=== PATIENT | female | born 1965 | race Hispanic/Latino ===

== ENCOUNTER 2016-07-16 08:07 | Inpatient (IN) | payer OTHER ==
[2016-07-16] MEDS ORDERED: MAGNESIUM SULFATE 2GM/50ML 2 GM/50 ML BAG IV ONE (08:18)
[2016-07-16] MEDS ORDERED: PROVENTIL IH ONE (08:25)
[2016-07-16] MEDS ORDERED: ATROVENT IH ONE (08:25)
--- NOTE | 2016-07-16 08:33 | Emergency Department Report ---
HPI - General Chief Complaint: Dyspnea/Respdistress Time Seen by Provider: 07/16/16 08:18 - HPI HPI: Room 20 The patient is a 50-year-old female presenting with a chief complaint of shortness of breath. Patient was recently diagnosed with COPD and is not on home O2. The past 2 days patient says worsening shortness of breath. The patient admits to a cough that is nonproductive. EMS was called this morning and found the patient hypoxic (80s on room air). Patient was placed on CPAP with improvement of her O2 sat to 99%. Patient also mentions she's had a "spider bite" on the left upper extremity 2 days ago. Location: Lungs, see above Duration: For 2 days Quality: Shortness Of breath Severity: Severe Modifying factors: [see above] Context: [see above] Mode of transportation: EMS ED Past Medical Hx - Past Medical History Hx COPD: Yes - Surgical History Additional Surgical History: c sections. tonsils removed - Family History Family history: no significant - Social History Smoking Status: Former Smoker Substance Use Type: None - Medications Home Medications: Home Medications Medication Instructions Recorded Confirmed Last Taken Type No Known Home Medications [No 07/16/16 07/16/16 Unknown History Reported Home Medications] ED Review of Systems ROS: Stated complaint: DIFFICULTY BREATHING Other details as noted in HPI Comment: All other systems reviewed and negative Constitutional: diaphoresis, fever (subjective) Eyes: denies: eye pain, eye discharge, vision change ENT: denies: ear pain, throat pain Respiratory: cough, shortness of breath, wheezing Cardiovascular: denies: chest pain, palpitations Endocrine: no symptoms reported Gastrointestinal: denies: abdominal pain, nausea, diarrhea Genitourinary: denies: urgency, dysuria, discharge Musculoskeletal: denies: back pain, joint swelling, arthralgia Skin: denies: rash, lesions Neurological: denies: headache, weakness, paresthesias Psychiatric: denies: anxiety, depression Hematological/Lymphatic: denies: easy bleeding, easy bruising Physical Exam - Physical Exam Vital Signs: Vital Signs 07/16/16 07/16/16 08:11 08:22 Temperature 97.8 F Pulse Rate 108 H 105 H Respiratory 28 H 23 Rate Blood Pressure 128/80 128/80 O2 Sat by Pulse 84 99 Oximetry Physical Exam: GENERAL: The patient is well-developed well-nourished female sitting on stretcher receiving CPAP not appearing to be in acute distress. [] HEENT: Normocephalic. Atraumatic. Extraocular motions are intact. Patient has moist mucous membranes. NECK: Supple. Trachea midline CHEST/LUNGS: Diffuse wheezing HEART/CARDIOVASCULAR: Regular. There is tachycardia. There is no gallop rub or murmur. ABDOMEN: Abdomen is soft, nontender. Patient has normal bowel sounds. There is no abdominal distention. SKIN: There is no rash. There is no edema. There is no diaphoresis. NEURO: The patient is awake, alert, and oriented. The patient is cooperative. The patient has normal speech MUSCULOSKELETAL: There is no evidence of acute injury. ED Course Vital Signs 07/16/16 07/16/16 08:11 08:22 Temperature 97.8 F Pulse Rate 108 H 105 H Respiratory 28 H 23 Rate Blood Pressure 128/80 128/80 O2 Sat by Pulse 84 99 Oximetry - Reevaluation(s) Reevaluation #1: 07/16/16 09:00 20-gauge IV placed in the left external jugular vein by myself after skin prepped with alcohol. ED Medical Decision Making - Lab Data Result diagrams: 07/16/16 08:43 07/16/16 08:43 Laboratory Tests 07/16/16 07/16/16 07/16/16 08:43 08:43 08:43 WBC 10.5 RBC 4.88 Hgb 14.9 H Hct 45.1 H MCV 92 MCH 31 MCHC 33 RDW 13.8 Plt Count 329 Lymph % (Auto) 36.6 H Karnes % (Auto) 9.2 H Eos % (Auto) 12.2 H Baso % (Auto) 0.9 Lymph # 3.8 Karnes # 1.0 H Eos # 1.3 H Baso # 0.1 Seg Neutrophils % 41.1 Seg Neutrophils # 4.3 PT 12.8 INR 0.97 APTT 41.6 H POC ABG pH POC ABG pCO2 POC ABG pO2 POC ABG HCO3 POC ABG Total CO2 POC ABG O2 Sat POC ABG Base Excess FiO2 Sodium 141 Potassium 4.3 Chloride 99.4 Carbon Dioxide 25 Anion Gap 21 BUN 9 Creatinine 0.7 Estimated GFR > 60 BUN/Creatinine Ratio 12.85 Glucose 98 Calcium 9.6 Total Creatine Kinase 424 H CK-MB (CK-2) 12.1 H CK-MB (CK-2) Rel Index 2.8 Troponin T < 0.010 NT-Pro-B Natriuret Pep 194.9 07/16/16 08:53 WBC RBC Hgb Hct MCV MCH MCHC RDW Plt Count Lymph % (Auto) Karnes % (Auto) Eos % (Auto) Baso % (Auto) Lymph # Karnes # Eos # Baso # Seg Neutrophils % Seg Neutrophils # PT INR APTT POC ABG pH 7.338 L POC ABG pCO2 48.6 H POC ABG pO2 77 L POC ABG HCO3 26.1 POC ABG Total CO2 28 POC ABG O2 Sat 94 POC ABG Base Excess 0 FiO2 30 Sodium Potassium Chloride Carbon Dioxide Anion Gap BUN Creatinine Estimated GFR BUN/Creatinine Ratio Glucose Calcium Total Creatine Kinase CK-MB (CK-2) CK-MB (CK-2) Rel Index Troponin T NT-Pro-B Natriuret Pep - EKG Data -: EKG Interpreted by Me EKG shows normal: sinus rhythm Rate: normal - EKG Data When compared to previous EKG there are: previous EKG unavailable Interpretation: nonspecific ST-T wave marycruz (T-wave inversions in leads 1, aVL) - Radiology Data Radiology results: image reviewed (chest x-ray) interpreted by me: Chest x-ray-no definite focal infiltrates, no pneumothorax - Differential Diagnosis COPD exacerbation, pneumonia, ACS Critical care attestation.: If time is entered above; I have spent that time in minutes in the direct care of this critically ill patient, excluding procedure time. ED Disposition Clinical Impression: Shortness of breath, COPD exacerbation Disposition: OP ADMITTED IP TO THIS HOSP Is pt being admited?: Yes Does the pt Need Aspirin: Yes Condition: Fair Instructions: Chronic Obstructive Pulmonary Disease (ED) Time of Disposition: 09:29 (hospitalist paged)
--- NOTE | 2016-07-16 08:35 | Admit Criteria Form ---
Admission Criteria Documentation: RESPIRATORY FAILURE GRG Clinical Indications for Admission to Inpatient Care (Place 'X' for any and all applicable criteria): Hospital admission is needed for appropriate care of the patient because of acute respiratory failure or insufficiency as indicated by ANY ONE of the following(1)(2)(3)(4)(5)(6)(7)(8): [ X]I. Mechanical ventilation needed (acute invasive or noninvasive) [ ]II. Severe ventilation deficit as indicated by ANY ONE of the following (9) [ ]a) Respiratory acidosis (pH less than 7.32 and partial pressure of carbon dioxide greater than 40 mm Hg (5.3 kPa)) [ ]b) Partial pressure of carbon dioxide greater than 44 mm Hg (5.9 kPa ) (new) [ ]c) Airflow measurements less than 25% of predicted (eg, peak expiratory flow rate less than 100 L/minute) [ ]d) Forced vital capacity less than 15 mL/kg of ideal body weight, or 50% decrease in vital capacity from baseline [ ]III. Noncardiac pulmonary edema not resolving with rapid emergency treatment (8) [ ]IV. Severe respiratory distress as indicated by ANY ONE of the following: [ ]a) Severe tachypnea (respiratory rate greater than 30, greater than 45 for 6-month-old, greater than 60 for ) [ ]b) Severe hypoxemia (partial pressure of oxygen less than 50 mm Hg ( 6.7 kPa) on greater than 50% oxygen or partial pressure of oxygen to FIO2 ratio less than 200) [ ]c) Mental status deterioration from respiratory disease [ ]V. Airway obstruction or inadequate protection [A](10)(11) The original [employer] content created by [employer] has been revised. The portions of the content which have been revised are identified through the use of italic text or in bold, and [employer] has neither reviewed nor approved the modified material. All other unmodified content is copyright [employer]. Please see references footnoted in the original [employer] edition 2016 Admission Criteria Met: Yes
[2016-07-16 09:00] LABS: ISTAT Base Excess 0; ISTAT HCO3 26.1; ISTAT PCO2 48.6 (35-45); ISTAT PH 7.338 (7.35-7.45); ISTAT PO2 77 (80-105); ISTAT SO2 94; ISTAT TCO2 28
[2016-07-16 09:04] LABS: Basophils % (Auto) 0.9 % (0.0-1.8); Eosinophils % (Auto) 12.2 % (0.0-4.3); Hematocrit 45.1 % (30.3-42.9); Hemoglobin 14.9 gm/dl (10.1-14.3); Mean Corpuscular HGB Conc 33 % (30-34); Mean Corpuscular Hemoglobin 31 pg (28-32); Mean Corpuscular Volume 92 fl (79-97); Platelet Count 329 K/mm3 (140-440); Red Blood Count 4.88 M/mm3 (3.65-5.03); Red Cell Distribution Width 13.8 % (13.2-15.2); White Blood Count 10.5 K/mm3 (4.5-11.0)
--- NOTE | 2016-07-16 09:11 | XRay Report ---
Single view chest: History: Shortness of breath. Findings: Normal cardiomediastinal silhouette trachea is midline. No consolidation, pneumothorax or pleural effusion. Impression: No acute cardiopulmonary findings.
[2016-07-16 09:15] LABS: INR 0.97 (0.87-1.13)
[2016-07-16 09:16] LABS: Partial Thromboplastin Time 41.6 Sec. (24.2-36.6)
[2016-07-16 09:19] LABS: Creatine Kinase MB 12.1 ng/mL (0.0-4.0)
[2016-07-16 09:20] LABS: Anion Gap 21 mmol/L; BUN/Creatinine Ratio 12.85; Blood Urea Nitrogen 9 mg/dL (7-17); Calcium 9.6 mg/dL (8.4-10.2); Carbon Dioxide 25 mmol/L (22-30); Chloride 99.4 mmol/L (98-107); Creatine Kinase 424 units/L (30-135); Glucose 98 mg/dL (65-100); Potassium 4.3 mmol/L (3.6-5.0); Sodium 141 mmol/L (137-145)
--- NOTE | 2016-07-16 10:37 | History and Physical Report ---
History of Present Illness Date of examination: 07/16/16 Date of admission: 07/16/16 09:31 Chief complaint: Shortness of breath and abnormal Baljinder History of present illness: Patient is a 50-year-old lady was a history of COPD, started having progressive shortness of breath and difficulty in breathing 2 days ago. Used her nebulizer treatments multiple times at home. Didn't have any improvement. Was progressively getting lethargic. EMS was coordinated. Patient was brought to the emergency department. Pulses oxygen was found to be in the 70s. The patient was transferred distress. Post on BiPAP. ABG showed pulse ox of 77. Patient denies any chest pain. No fever. No orthopnea proximal nocturnal dyspnea. No nausea vomiting. Admission was therefore requested for further evaluation and management. Past History Past Medical History: COPD, other Past Surgical History: , tonsillectomy Social history: other (was walking up until a month smoking up until one month ago when she quit. He smoked about half a pack of per day for the past 10-12 years.) Family history: other (COPD) Medications and Allergies Allergies Allergy/AdvReac Type Severity Reaction Status Date / Time No Known Allergies Allergy Unverified 07/16/16 08:15 Home Medications Medication Instructions Recorded Confirmed Last Taken Type No Known Home Medications [No 07/16/16 07/16/16 Unknown History Reported Home Medications] Active Meds: Active Medications Albuterol/Ipratropium (Duoneb 0.5 Mg-3 Mg/3 Ml Soln) 1 ampul IH Q4HRT [facility] Arformoterol Tartrate (Brovana Nebu) 15 mcg IH Q12HRT [facility] Budesonide (Pulmicort) 0.25 mg IH Q12HRT [facility] Heparin Sodium (Porcine) (Heparin) 5,000 unit SUB-Q Q12HR [facility] Azithromycin 500 mg/ Sodium (Chloride) 250 mls @ 250 mls/hr IV Q24HR [facility] Methylprednisolone Sodium Succinate (Solu-Medrol) 40 mg IV Q8HR [facility] Review of systems Constitutional: Well Nouridhed and Well developed. Head: NC/ AT Eyes: Denies any visual impairments. No discharge from the eyes Nose: Denies any rhinorrhea or epistaxis Throats: Denies any post nasal drainage. Ears: Denies any hearing deficits Cardiovascular system: Denies any chest pain, shortness of breath, orthopnea, paroxysmal nocturnal dyspnea, or palpitation. Respiratory system: Has difficulty breathing, wheezing, no pleuritic chest pain, Gastrointestinal system: Denies any abdominal pain, nausea vomiting, hematemesis or melena. Neurological system: Denies any headache, slurred speech, facial droop, lateralizing weakness Genitalia system: Denies any dysuria, urinary frequency or urgency, urethral discharge Skin: No rashes, hyperpigmented spots. Hematological: Denies any cervical tenderness hemorrhages or petechia. Immunological: Denies any multiple septic spots, Lymphatic: Denies any generalized lymphadenopathy. Endocrine: Denies any polyuria, polydipsia, polyphagia. No heat or cold intolerance. Musculoskeletal system: No joint pain or swelling. Psych: No visual, tactile, auditory or hallucination Exam - Constitutional Vitals: Temp Pulse Resp BP Pulse Ox 97.8 F 92 H 18 109/64 98 07/16/16 08:11 07/16/16 10:13 07/16/16 10:13 07/16/16 10:13 07/16/16 10:13 General appearance: Present: mild distress, well-nourished - EENT Eyes: Present: PERRL - Neck Neck: Present: supple, normal ROM - Respiratory Respiratory effort: normal Respiratory: bilateral: diminished, wheezing - Cardiovascular Heart Sounds: Present: S1 & S2. Absent: rub, click - Extremities Extremities: pulses symmetrical, No edema Peripheral Pulses: within normal limits - Abdominal General gastrointestinal: Present: soft, non-tender, non-distended, normal bowel sounds Female genitourinary: Present: normal - Integumentary Integumentary: Present: clear, warm, dry - Musculoskeletal Musculoskeletal: gait normal, strength equal bilaterally - Psychiatric Psychiatric: appropriate mood/affect, intact judgment & insight - Neurologic Neurologic: CNII-XII intact, moves all extremities Results - Labs CBC & Chem 7: 07/16/16 08:43 07/16/16 08:43 Assessment and Plan Assessment and plan -Acute hypoxemic respiratory failure Continue with BiPAP. DuoNeb. Pulmonology consult. - COPD exacerbation Commence patient on DuoNeb. IV Solu-Medrol. IV gentamicin. Continue with BiPAP. -Tobacco use disorder. Tobacco cessation Was Done. -Cellulitis of the left elbow Augmentin 875 mg 1 by mouth twice a day, IV Azithromycin -DVT prophylaxis with heparin and GI with Pepcid
[2016-07-16] MEDS ORDERED: PROVENTIL IH PRN (11:03)
[2016-07-16] MEDS: PULMICORT IH SCH ×2 (11:49→19:55)
[2016-07-16] MEDS: BROVANA NEBU IH SCH ×2 (11:49→19:55)
[2016-07-16] MEDS: DUONEB 0.5 MG-3 MG/3 ML SOLN IH SCH ×4 (14:04→20:56)
[2016-07-16] MEDS: ZITHROMAX 500 MG in NACL 0.9% 250ML 250 ML IV SCH (15:10)
[2016-07-16 17:56] LABS: ISTAT Base Excess 1; ISTAT HCO3 26.5; ISTAT PCO2 47.2 (35-45); ISTAT PH 7.357 (7.35-7.45); ISTAT PO2 80 (80-105); ISTAT SO2 95; ISTAT TCO2 28
[2016-07-16] MEDS: HEPARIN SUB-Q SCH (21:45)
[2016-07-17] MEDS: DUONEB 0.5 MG-3 MG/3 ML SOLN IH SCH ×4 (02:01→19:05)
[2016-07-17] MEDS: BROVANA NEBU IH SCH ×2 (07:58→19:06)
[2016-07-17] MEDS: PULMICORT IH SCH ×3 (08:00→19:12)
[2016-07-17 08:53] LABS: ISTAT Base Excess TNR
[2016-07-17 08:54] LABS: ISTAT HCO3 TNR; ISTAT PCO2 TNR (35-45); ISTAT PH TNR (7.35-7.45); ISTAT PO2 TNR (80-105); ISTAT SO2 TNR; ISTAT TCO2 TNR
[2016-07-17] MEDS ORDERED: PEPCID IV SCH (10:00)
[2016-07-17] MEDS: HEPARIN SUB-Q SCH ×2 (10:49→21:39)
--- NOTE | 2016-07-17 12:07 | Consultation ---
History of Present Illness Consult date: 07/17/16 Reason for consult: dyspnea, cough, COPD History of present illness: Called to evaluate case of a 50-year-old female, chronic active smoker who presents with her second episode of shortness of breath in the past 4-5 weeks. The patient reports that she started with breathing problems about 2 days ago characterized by discussed with the breathing, dyspnea upon exertion, chest tightness. Some wheezing reported. She denies fevers chills or chest pain. She denies hemoptysis. She had a similar presentation of symptoms about 4-5 weeks ago and she was seen at the ER, been diagnosed at the time of COPD exacerbation. Reportedly on nebulizer therapy twice a day at home. She is a chronic smoker since age 19 smoking one half pack cigarettes per day. Denies alcohol drug abuse. No sick contacts, [place] or recent travel. She does report also smokers, secondhand smoke exposure. Currently feeling improved after breathing treatments overnight. Past History Past Medical History: COPD, other Past Surgical History: , tonsillectomy Social history: other (was walking up until a month smoking up until one month ago when she quit. He smoked about half a pack of per day for the past 10-12 years.) Family history: other (COPD) Medications and Allergies Allergies Allergy/AdvReac Type Severity Reaction Status Date / Time No Known Allergies Allergy Unverified 07/16/16 08:15 Home Medications Medication Instructions Recorded Confirmed Last Taken Type No Known Home Medications [No 07/16/16 07/16/16 Unknown History Reported Home Medications] Active Meds: Active Medications Albuterol (Proventil) 2.5 mg IH Q2HRT PRN PRN Reason: Shortness Of Breath Albuterol/Ipratropium (Duoneb 0.5 Mg-3 Mg/3 Ml Soln) 1 ampul IH Q6HRT [facility] Last Admin: 07/17/16 08:00 Dose: Not Given Arformoterol Tartrate (Brovana Nebu) 15 mcg IH Q12HRT [facility] Last Admin: 07/17/16 07:58 Dose: 15 mcg Budesonide (Pulmicort) 0.25 mg IH Q12HRT [facility] Last Admin: 07/17/16 08:00 Dose: 0.25 mg Famotidine (Pepcid) 20 mg IV QDAY [facility] Last Admin: 07/17/16 10:49 Dose: 20 mg Heparin Sodium (Porcine) (Heparin) 5,000 unit SUB-Q Q12HR [facility] Last Admin: 07/17/16 10:49 Dose: 5,000 unit Azithromycin 500 mg/ Sodium (Chloride) 250 mls @ 250 mls/hr IV Q24HR [facility] Last Admin: 07/16/16 15:10 Dose: 250 mls/hr Methylprednisolone Sodium Succinate (Solu-Medrol) 80 mg IV Q8HR [facility] Last Admin: 07/17/16 06:42 Dose: 80 mg Review of Systems Constitutional: fatigue, no weight loss, no fever, no chills, no sweats, no night sweats Ears, nose, mouth and throat: no nasal congestion, no nasal discharge, no sinus pressure Cardiovascular: orthopnea, shortness of breath, dyspnea on exertion, no chest pain, no edema, no syncope Respiratory: cough, shortness of breath, dyspnea on exertion, congestion, wheezing, sleep apnea (partner reports that the patient snores heavily at night with breathing difficulty) Musculoskeletal: no morning stiffness Integumentary: no rash Neurological: no head injury, no transient paralysis, no paralysis, no weakness , no parathesias, no numbness, no vertigo, no convulsions Hematologic/Lymphatic: no easy bruising, no easy bleeding, no lymphadenopathy Allergic/Immunologic: allergic rhinitis, wheezing Physical Examination Vital signs: Vital Signs Pulse Ox 96 07/16/16 08:06 General appearance: no acute distress, alert Eyes: non-icteric ENT: oropharynx moist Neck: supple, no lymphadenopathy, no JVD Ascultation: Bilateral: diminished breath sounds, rhonchi (sporadic no wheezes) Cardiovascular: regular rate and rhythm Gastrointestinal: normoactive bowel sounds, non-tender Integumentary: normal, other (multiple tattoos) Extremities: no cyanosis, no edema Musculoskeletal: no deformities, ROM normal normal mental status, non-focal exam, pupils equal and round, CN II-XII normal, motor strength normal and mood appropriate Results - Laboratory Findings CBC and BMP: 07/16/16 08:43 07/16/16 08:43 ABG POC ABG pH 7.357 (7.35-7.45) 07/16/16 17:45 POC ABG pCO2 47.2 (35-45) H 07/16/16 17:45 POC ABG pO2 80 (80-105) 07/16/16 17:45 POC ABG HCO3 26.5 07/16/16 17:45 POC ABG Total CO2 28 07/16/16 17:45 POC ABG O2 Sat 95 07/16/16 17:45 PT/INR, D-dimer PT 12.8 Sec. (12.2-14.9) 07/16/16 08:43 INR 0.97 (0.87-1.13) 07/16/16 08:43 Abnormal lab findings: Abnormal Labs 07/16/16 17:45 POC ABG pCO2 47.2 H - Diagnostic Findings Chest x-ray: report reviewed, image reviewed Assessment and Plan COPD exacerbation. Acute exacerbation chronic bronchitis Tobacco abuse Recommendations Continue albuterol or DuoNeb nebulizations one ampule unit dose every 4-6 hours. Oxygen as needed to maintain oximetry over 90% Solu-Medrol 40-60 mg IV every 8 hours. Complete 5 days of azithromycin or doxycycline Smoking cessation was discussed with the patient. Nicotine replacement patch can be used Will benefit from outpatient pulmonary function test for COPD treatment stratification level DVT prophylaxis
[2016-07-17] MEDS: ZITHROMAX 500 MG in NACL 0.9% 250ML 250 ML IV SCH (13:32)
--- NOTE | 2016-07-17 15:43 | Progress Note ---
Subjective Date of service: 07/17/16 Interval history: Assessment and plan COPD exacerbation Complains of productive cough with greenish white sputum Denies fever and chills However she is refusing anything IV And is refusing INT We will change the steroids and antibiotics to oral Will add Singulair Continue aggressive nebulizer treatments Hypoxia: Continue oxygen at 2 L via nasal cannula Acute on chronic bronchitis: Continue antibiotics and steroids Tobacco abuse: Tobacco cessation counseling Objective - Constitutional Vitals: Vital Signs - 12hr 07/17/16 07/17/16 07/17/16 04:51 08:00 08:15 Temperature 97.9 F 98.2 F Pulse Rate [ 86 88 Anterior Bilateral Throughout] Pulse Rate [ 77 77 Right Radial] Respiratory 18 18 Rate Respiratory 16 16 Rate [Anterior Bilateral Throughout] Blood Pressure 128/77 125/83 [Right Arm] O2 Sat by Pulse 97 97 Oximetry 07/17/16 07/17/16 07/17/16 08:19 13:51 14:06 Temperature Pulse Rate [ 90 96 H Anterior Bilateral Throughout] Pulse Rate [ Right Radial] Respiratory Rate Respiratory 16 16 Rate [Anterior Bilateral Throughout] Blood Pressure [Right Arm] O2 Sat by Pulse 94 Oximetry General appearance: Present: no acute distress - EENT Eyes: PERRL, EOM intact ENT: hearing intact, clear oral mucosa, no thrush - Neck Neck: supple, normal ROM - Respiratory Respiratory effort: normal Respiratory: bilateral: diminished, rhonchi (bilateral expiratory rhonchi) - Cardiovascular Rhythm: regular Heart Sounds: Present: S1 & S2 Extremities: No edema - Gastrointestinal General gastrointestinal: Present: soft, non-tender. Absent: hepatomegaly, splenomegaly Rectal Exam: deferred - Integumentary Integumentary: clear - Musculoskeletal Musculoskeletal: strength equal bilaterally - Neurologic Neurologic: no focal deficits - Labs CBC & Chem 7: 07/16/16 08:43 07/16/16 08:43 Labs: Abnormal lab results 07/16/16 Range/Units 17:45 POC ABG pCO2 47.2 H (35-45)
[2016-07-17] MEDS: DELTASONE PO SCH (16:07)
[2016-07-17] MEDS: LEVAQUIN PO SCH (16:08)
[2016-07-17] MEDS ORDERED: CEPHULAC PO ONE (17:00)
[2016-07-17] MEDS ORDERED: SINGULAIR PO SCH (22:00)
[2016-07-18] MEDS: DUONEB 0.5 MG-3 MG/3 ML SOLN IH SCH ×2 (02:26→07:48)
[2016-07-18] MEDS: BROVANA NEBU IH SCH (07:47)
[2016-07-18] MEDS: PULMICORT IH SCH (07:47)
[2016-07-18] MEDS: LEVAQUIN PO SCH (09:45)
[2016-07-18] MEDS: DELTASONE PO SCH (09:45)
[2016-07-18] MEDS: HEPARIN SUB-Q SCH (09:45)
[2016-07-18 09:57] VITALS: BP 126/76
[2016-07-18] MEDS ORDERED: PROTONIX PO SCH (10:00)
--- NOTE | 2016-07-18 11:55 | Discharge Summary ---
Providers - Providers Date of Admission: 07/16/16 09:31 Date of discharge: 07/18/16 Attending physician: CLEO SCALES 07/16/16 22:10 Consult to Physician [CONS] Routine Consulting Provider: NANNETTE GUTIERREZ Reason For Exam: acuter respiratory failure Place consult to:: Terri Notified:: Destini HOLLINGSWORTH Phone number called:: Was contact made?: Yes If yes, spoke with:: Jazmyn-Office Time called:: 08:39 Primary care physician: [employer] Hospitalization Condition: Fair Disposition: DISCHARGED TO HOME OR SELFCARE Core Measure Documentation - Palliative Care Palliative Care/ Comfort Measures: Not Applicable - Core Measures Any of the following diagnoses?: none Exam - Constitutional Vitals: Temp Pulse Resp BP Pulse Ox 97.6 F 95 H 18 126/76 95 07/18/16 08:35 07/18/16 08:35 07/18/16 08:35 07/18/16 08:35 07/18/16 08:35 General appearance: Present: no acute distress, well-nourished - EENT Eyes: Present: PERRL, EOM intact - Neck Neck: Present: supple, normal ROM - Respiratory Respiratory effort: normal Respiratory: negative: rales, rhonchi, wheezing - Cardiovascular Rhythm: regular Heart Sounds: Present: S1 & S2 - Extremities Extremities: no ischemia, pulses intact, pulses symmetrical Peripheral Pulses: within normal limits - Abdominal General gastrointestinal: Present: soft, non-tender, non-distended, normal bowel sounds - Integumentary Integumentary: Present: clear, warm - Musculoskeletal Musculoskeletal: strength equal bilaterally - Psychiatric Psychiatric: appropriate mood/affect, cooperative - Neurologic Neurologic: CNII-XII intact, moves all extremities Plan Activity: no restrictions Diet: regular Follow up with: [facility] [Provider Group] - 7 Days PRIMARY CARE, [Primary Care Provider] - 7 Days Prescriptions: ALBUTEROL Inhaler [ProAir HFA Inhaler] 2 puff IH QID PRN #1 inhalation PRN Reason: Shortness Of Breath Budesonide [Pulmicort Respules] 0.5 mg IH Q12HRT 30 Days Doxycycline [Vibramycin CAP] 100 mg PO Q12HR #14 capsule Ipratropium/Albuter (Nf) [Combivent (Nf)] 2 puff IH QID 30 Days Montelukast [Singulair] 10 mg PO QHS #30 tablet predniSONE [Deltasone] 40 mg PO QDAY #10 tablet
== END 2016-07-18 12:25 | disposition home or self-care (01) | DRG 189 ==
LOC: ED 08:07 → 4A 09:31
PROVIDERS: ADMIT Family Medicine; ATTEND Internal Medicine
PROC: 5A09357 Assistance with Respiratory Ventilation, Less than 24 Consecutive Hours, Continuous Positive Airway Pressure (ICD-10-PCS; principal; 2016-07-16)
PROC: 4A033R1 Measurement of Arterial Saturation, Peripheral, Percutaneous Approach (ICD-10-PCS; 2016-07-16)
DX: J96.01 Acute respiratory failure with hypoxia (principal); J44.1 Chronic obstructive pulmonary disease with (acute) exacerbation; L03.114 Cellulitis of left upper limb; J44.0 Chronic obstructive pulmonary disease with (acute) lower respiratory infection; J20.9 Acute bronchitis, unspecified; Z90.89 Acquired absence of other organs; Z72.0 Tobacco use; Z83.6 Family history of other diseases of the respiratory system
CPT/HCPCS: 36415; 36600; 71010; 80048; 82550; 82553; 82803; 83880; 84484; 85025; 85610; 85730; 93005; 93010; 94640; 94644; 94660; 94760; 96365; 96375; 99406; J0456; J1644; J2920; J2930; J3246; J3475; J7050; J7512

== ENCOUNTER 2016-08-10 17:38 | Emergency (ER) | payer SELFPAY ==
[2016-08-10] MEDS ORDERED: ZOFRAN ONE (18:18)
[2016-08-10] MEDS ORDERED: ZOFRAN IV ONE (18:23)
--- NOTE | 2016-08-10 18:26 | Emergency Department Report ---
History of Present Illness - General Chief Complaint: Overdose Stated Complaint: OVERDOSE Time Seen by Provider: 08/10/16 18:23 Source: EMS Mode of arrival: Stretcher Limitations: No Limitations - History of Present Illness Initial Comments: Pt is a 50 yr old female, unknown to me, who presents to the ED s/p heroin OD. Pt reports she does not regularly use heroin, but this was her 2nd time and she snorted an unknown amount of heroin today in her car. Pt was found unresponsive and given 2mg of narcan and abruptly awoke. Pt now c/o nausea, but has no other complaints. Otherwise no fevers, chills, MONTALVO, dizziness, CP, SOB, abd pain, travel, or sick contacts - Related Data Previous Rx's Medication Instructions Recorded Last Taken Type ALBUTEROL Inhaler [ProAir HFA 2 puff IH QID PRN #1 inhalation 07/18/16 Unknown Rx Inhaler] Budesonide [Pulmicort Respules] 0.5 mg IH Q12HRT 30 Days 07/18/16 Unknown Rx Doxycycline [Vibramycin CAP] 100 mg PO Q12HR #14 capsule 07/18/16 Unknown Rx Ipratropium/Albuter (Nf) 2 puff IH QID 30 Days 07/18/16 Unknown Rx [Combivent (Nf)] Montelukast [Singulair] 10 mg PO QHS #30 tablet 07/18/16 Unknown Rx predniSONE [Deltasone] 40 mg PO QDAY #10 tablet 07/18/16 Unknown Rx Allergies Allergy/AdvReac Type Severity Reaction Status Date / Time No Known Allergies Allergy Unverified 07/16/16 08:15 ED Review of Systems ROS: Stated complaint: OVERDOSE Other details as noted in HPI Comment: All other systems reviewed and negative ED Past Medical Hx - Past Medical History Previous Medical History?: Yes Hx COPD: Yes - Surgical History Additional Surgical History: c sections. tonsils removed - Social History Smoking Status: Current Every Day Smoker Substance Use Type: Heroin - Medications Home Medications: Home Medications Medication Instructions Recorded Confirmed Last Taken Type ALBUTEROL Inhaler [ProAir HFA 2 puff IH QID PRN #1 inhalation 07/18/16 Unknown Rx Inhaler] Budesonide [Pulmicort Respules] 0.5 mg IH Q12HRT 30 Days 07/18/16 Unknown Rx Doxycycline [Vibramycin CAP] 100 mg PO Q12HR #14 capsule 07/18/16 Unknown Rx Ipratropium/Albuter (Nf) 2 puff IH QID 30 Days 07/18/16 Unknown Rx [Combivent (Nf)] Montelukast [Singulair] 10 mg PO QHS #30 tablet 07/18/16 Unknown Rx predniSONE [Deltasone] 40 mg PO QDAY #10 tablet 07/18/16 Unknown Rx ED Physical Exam - General Limitations: No Limitations General appearance: alert, in no apparent distress - Head Head exam: Present: atraumatic, normocephalic - Eye Eye exam: Present: normal appearance - ENT ENT exam: Present: mucous membranes moist - Neck Neck exam: Present: normal inspection - Respiratory Respiratory exam: Present: normal lung sounds bilaterally. Absent: respiratory distress - Cardiovascular Cardiovascular Exam: Present: regular rate, normal rhythm. Absent: systolic murmur, diastolic murmur, rubs, gallop - GI/Abdominal GI/Abdominal exam: Present: soft, normal bowel sounds - Extremities Exam Extremities exam: Present: normal inspection - Back Exam Back exam: Present: normal inspection - Neurological Exam Neurological exam: Present: alert, oriented X3 - Psychiatric Psychiatric exam: Present: normal affect, normal mood - Skin Skin exam: Present: warm, dry, intact, normal color. Absent: rash ED Course Vital Signs 08/10/16 18:05 Temperature 98.0 F Pulse Rate 98 H Respiratory 93 H Rate Blood Pressure 120/84 ED Medical Decision Making - Medical Decision Making Pt re-evaluated multiple times, patient has remained AAOx3. Pt tolerating PO and has family at bedside Drug cessation discussed with patient Critical care attestation.: If time is entered above; I have spent that time in minutes in the direct care of this critically ill patient, excluding procedure time. ED Disposition Clinical Impression: Heroin abuse Disposition: DC-01 TO HOME OR SELFCARE Is pt being admited?: No Condition: Stable Instructions: Narcotic Abuse (ED)
[2016-08-10 19:28] LABS: Bacteria,Urine 1+ /HPF (Negative); Bilirubin,Urine NEG (Negative); Blood,Urine NEG (Negative); Granular Casts,Urine 1 /LPF; Ketones,Urine NEG (Negative); Leukocyte Esterase,Urine NEG (Negative); Mucus,Urine FEW /HPF; Nitrite,Urine NEG (Negative); Protein,Urine <15 mg/dL mg/dL (Negative); Urobilinogen,Urine < 2.0 mg/dL (<2.0)
[2016-08-10 21:04] VITALS: BP 128/89
== END 2016-08-10 21:05 | disposition home or self-care (01) ==
LOC: ED 17:38
DX: F11.10 Opioid abuse, uncomplicated (principal); J44.9 Chronic obstructive pulmonary disease, unspecified; F17.200 Nicotine dependence, unspecified, uncomplicated
CPT/HCPCS: 81001; 81025; 82962; 96374; 99284; J2405